=== PATIENT | male | born 1955 | race Caucasian/White ===

== ENCOUNTER 2022-12-24 16:53 | Emergency (ER) | payer MEDICAID ==
[~2022-12-24] VITALS: Ht 167.6 cm; Wt 81.2 kg
[2022-12-24 16:56] VITALS: BP 147/72
[2022-12-24 19:00] VITALS: BP 147/72
[2022-12-24] MEDS ORDERED: IBUP-1842 PO (20:24)
[2022-12-24] MEDS ORDERED: KETOROLAC 30 MG/ML VIAL IM ONE (20:25)
== END 2022-12-24 20:30 | disposition home or self-care (01) ==
LOC: MED 16:53
DX: M54.50 Low back pain, unspecified (principal); M54.2 Cervicalgia; R51.9 Headache, unspecified; M25.512 Pain in left shoulder; E11.9 Type 2 diabetes mellitus without complications; I10 Essential (primary) hypertension; Z79.4 Long term (current) use of insulin; Z79.899 Other long term (current) drug therapy; W18.30XA Fall on same level, unspecified, initial encounter; Y93.89 Activity, other specified; Y92.89 Other specified places as the place of occurrence of the external cause; Y99.8 Other external cause status
CPT/HCPCS: 70450; 72125; 72131; 73030; 96374; 99285; J1885